=== PATIENT | female | born 2005 | race Hispanic/Latino ===

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

== ENCOUNTER 2023-08-29 16:50 | Emergency (ER) | payer OTHER ==
[~2023-08-29] VITALS: Ht 149.9 cm; Wt 51.2 kg
[~2023-08-29 16:50] MED LIST changes: +EPOGEN4000 U/ML IJ; +SODIUM BICAR650 MG PO; +VITAMIN D2000 UNI1 PO
[2023-08-29] MEDS ORDERED: TERBINAFINE250 M1 PO (17:16)
== END 2023-08-29 17:43 | disposition home or self-care (01) ==
LOC: ED 16:50
DX: B35.4 Tinea corporis (principal); N18.6 End stage renal disease; Z99.2 Dependence on renal dialysis; F32.A Depression, unspecified; F41.9 Anxiety disorder, unspecified

== ENCOUNTER 2023-09-23 17:07 | Emergency (ER) | payer OTHER ==
[~2023-09-23] VITALS: Ht 149.9 cm; Wt 50.8 kg
[~2023-09-23 17:07] MED LIST changes: +TERBINAFINE250 M1 PO
[2023-09-23 17:38] VITALS: BP 117/78
[2023-09-23 18:00] VITALS: BP 127/84
[2023-09-23] MEDS ORDERED: KURIC2 % EX (18:00)
[2023-09-23 18:06] VITALS: BP 127/84
== END 2023-09-23 18:10 | disposition home or self-care (01) ==
LOC: ED 17:07
DX: B35.4 Tinea corporis (principal); N18.6 End stage renal disease; Z99.2 Dependence on renal dialysis; F32.A Depression, unspecified; F41.9 Anxiety disorder, unspecified